=== PATIENT | female | born 1980 | race American Indian/Alaskan Native ===

== ENCOUNTER 2018-05-30 13:38 | Emergency (ER) | payer OTHER ==
[2018-05-30] MEDS ORDERED: ULTRAM PO ONE (16:53)
[2018-05-30] MEDS ORDERED: MOTRIN PO ONE (16:53)
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
[2018-05-30 19:32] VITALS: BP 118/60
== END 2018-05-30 19:29 | disposition home or self-care (01) ==
LOC: ED 13:38
DX: S02.2XXA Fracture of nasal bones, initial encounter for closed fracture (principal); S00.83XA Contusion of other part of head, initial encounter; F17.200 Nicotine dependence, unspecified, uncomplicated; Y00.XXXA Assault by blunt object, initial encounter; Y93.89 Activity, other specified; Y99.8 Other external cause status; Y92.89 Other specified places as the place of occurrence of the external cause
CPT/HCPCS: 70486